=== PATIENT | male | born 1990 | race Two or more races ===

== ENCOUNTER 2020-09-15 04:09 | Emergency (ER) | payer OTHER, SELFPAY ==
--- NOTE | ~2020-09-15 | XR_ITS ---
EXAMINATION: XR CHEST CLINICAL INFORMATION: Cough COMPARISON: 05/24/2019 TECHNIQUE: Frontal view of the chest was obtained. FINDINGS: No significant abnormality is noted involving the heart, lungs, mediastinum, bony thorax or soft tissues. XR/XR chest 1V IMPRESSION: Unremarkable examination.
[2020-09-15 05:27] VITALS: BP 146/84; PULSE 71; RESP 18; TEMP 36.7; O2SAT 96; BMI 43.0
--- NOTE | 2020-09-15 06:27 | ED_ITS ---
HPI - URI/Sore Throat General Chief Complaint: Upper Respiratory Symptoms Stated Complaint: PAIN WHEN COUGH Time Seen by Provider: 09/15/20 05:46 Source: patient Mode of arrival: ambulatory History of Present Illness HPI Narrative: 29-year-old male who was diagnosed with COVID-19 on 09/07 and has since had improvement of his COVID symptoms with the exception of a persistent dry cough although patient sources that he continues to vape. He presents today with complaints of pain at the anterior abdominal wall every time he coughs. This is not been associated with any fever, chills, nausea, vomiting, diarrhea, or urinary pain/burning/frequency. Related Data Previous Rx's Medication Instructions Recorded benzonatate [Tessalon Perles] 100 mg PO TID PRN 3 Days #10 cap 09/15/20 Allergies Allergy/AdvReac Type Severity Reaction Status Date / Time No Known Allergies Allergy Unverified 02/23/20 16:10 [No Known Allergies*] Review of Systems Review of Systems: Pertinent positives and negatives as stated in the HPI and 10 point review of systems is otherwise negative. PMFSH Past Medical History Source: nursing notes reviewed Medical History No known health problems Social History Social History Advance Directives: No Advance Directives Information Provided: No Physical Exam Vital Signs: Vital Signs: Last Vital Signs Temp 98.1 F 09/15/20 05:27 Pulse 71 09/15/20 05:27 Resp 18 09/15/20 05:27 BP 146/84 H 09/15/20 05:27 Pulse Ox 96 09/15/20 05:27 Body Mass Index 43.0 VITAL SIGNS: Reviewed. GENERAL: Well developed, well nourished, in no acute distress. HEAD: Normocephalic/atraumatic LUNGS: Bilateral rhonchi but no noted wheezing SpO2<96> CARDIOVASCULAR: Regular rate and rhythm without noted murmurs ABDOMEN: Obese, soft, non-tender, non-distended with bowel sounds, there is no pain on palpation of the left abdominal wall. NEUROLOGIC: Alert and oriented x 4. Course Course Course Narrative: This is a 29-year-old male with history and clinical presentation consistent with abdominal wall muscle strain associated with persistent coughing since the end of August. There is no clinical findings or history to suggest intra-abdominal or urinary pathologies. In addition, patient is overall expressing improvement in his COVID-19 symptoms. Review of all investigations is negative for any acute findings. Patient stable for discharge to home with prescription for Tessalon. Discharge Plan Discharge Clinical Impression: Abdominal wall pain Patient Disposition: Home, Self-Care Instructions: Muscle Strain (ED) Additional Instructions: 1. Tylenol 1000 mg, orally, every 6 hours as needed for pain control. Do not exceed 4000 mg within 24 hours. 2. Ibuprofen 400 mg, orally with milk or food, every 6 hours as needed for pain control. 3. Lidocaine patch, these are available [id number] at every [facility], apply to area of maximal tenderness as directed on the outside packaging. Prescriptions: New benzonatate [Tessalon Perles] 100 mg capsule 100 mg PO TID PRN (Reason: cough) 3 Days Qty: 10 RF: 0 Referrals: Physician,Unknown [Primary Care Provider] - 2 days
[2020-09-15] MEDS: Ketorolac Tromethamine 15 MG/ML VIAL IM (06:46)
[2020-09-15] MEDS: Benzonatate 100 MG CAPSULE 200 MG PO (06:46)
[2020-09-15] MEDS: Acetaminophen 325 MG TABLET 975 MG PO (06:46)
[2020-09-15] MEDS: Lidocaine 4 % Patch ADH..PATCH 1 PATCH TRANSDERMA (06:47)
== END 2020-09-15 06:55 | disposition home or self-care (01) ==
PROVIDERS: Emergency Provider Student in an Organized Health Care Education/Training Program
DX: R10.9 Unspecified abdominal pain (principal); F17.290 Nicotine dependence, other tobacco product, uncomplicated; Z86.16 Personal history of COVID-19
CPT/HCPCS: 71045; 96372; 99283; 99284; J1885

== ENCOUNTER → 2021-05-07 10:32 | Outpatient (BNVA) | payer OTHER, SELFPAY | PROVIDERS: PCP Internal Medicine; Referring Provider Internal Medicine; Visit Provider Psychiatry & Neurology Neurology | DX: G47.33 Obstructive sleep apnea (adult) (pediatric) (principal); E66.01 Morbid (severe) obesity due to excess calories; Z68.42 Body mass index [BMI] 45.0-49.9, adult | CPT/HCPCS: 99202 ==

== ENCOUNTER 2021-07-26 12:02 | Outpatient (REF) | payer OTHER, SELFPAY ==
[2021-07-26 12:19] LABS: MANUAL DIFF FLAG NO
[2021-07-26 12:42] LABS: Basophils Percent Auto 0.3 % (0-2); Eosinophils Absolute Auto 0.1 X10*3/uL (0.0-0.4); Eosinophils Percent Auto 1.5 % (0-4); Hemoglobin 14.6 g/dl (14.0-18.0); Imm Gran Abs Auto 0.04 X10*3/uL (0.00-0.03); Imm Gran Pct Auto 0.4 % (0.0-0.4); Lymphocytes Absolute Auto 2.3 X10*3/uL (1.2-4.9); Lymphocytes Percent Auto 23.7 % (20-40); Mean Corpuscular HGB Conc 32.4 g/dl (31.0-36.0); Mean Corpuscular Hemoglobin 28.3 pg (27.0-33.0); Mean Corpuscular Volume 87.4 fL (80.0-98.0); Mean Platelet Volume 9.8 fL (9.4-12.4); Monocytes Absolute Auto 0.6 X10*3/uL (0.1-1.2); Monocytes Percent Auto 6.2 % (2-11); Neutrophils Absolute Auto 6.6 x10*3/uL (2.0-8.3); Neutrophils Percent Auto 67.9 % (45-73); Platelet Count 307 X10*3/uL (160-400); Red Blood Count 5.15 X10*6/uL (4.60-5.80); Red Cell Distribution Width 13.9 % (11.0-16.0); White Blood Count 9.7 X10*3/uL (4.8-10.8)
[2021-07-26 13:07] LABS: Alanine Aminotransferase 43 U/L (0-40); Albumin Level 4.4 g/dL (3.5-5.0); Alkaline Phosphatase 129 U/L (39-117); Anion Gap 12 (12-20); Aspartate Amino Transferase 25 U/L (5-37); Bilirubin Total < 0.2 mg/dL (0.0-1.0); Blood Urea Nitrogen 17 mg/dL (9-16); Calcium 9.7 mg/dL (8.4-10.2); Carbon Dioxide 28 mmol/L (22-29); Chloride 104 mmol/L (96-108); Cholesterol 206 mg/dL; Estimated Glomerular Filt Rate > 60; Glucose Fasting 102 mg/dL (60-99); HDL Cholesterol 39 mg/dL; LDL Cholesterol Calculated 150 mg/dl; Sodium 139 mmol/L (135-145); Total Protein 7.8 g/dL (6.5-8.0); Triglycerides 86 mg/dL
[2021-07-26 13:18] LABS: Appearance Urine CLEAR; Color Urine YELLOW; Glucose Urine UA NEG (NEG); Leukocyte Esterase Urine NEG (NEG); Nitrite Urine NEG (NEG); PH 6.5 (5.0-8.0); Specific Gravity - Urine 1.015 (1.005-1.025); Urine Blood NEG (NEG); Urine Ketones NEG (NEG); Urine Protein NEG (NEG-TRACE)
[2021-07-26 13:26] LABS: TSH reflex Free T4 1.73 uIU/mL (0.32-4.0); Vitamin D 25-OH Total 7.2 ng/mL (>30)
[2021-07-29 08:17] LABS: HBS Num1 0.07 mIU/mL (0-7.99); HBc Num1 0.11 S/CO (0.00-0.79); Hepatitis B Core Antibody Nonreactive (Nonreactive); ~HepC Num1 0.14 S/CO (0.00-0.79); ~Hepatitis B Surface Antibody NONREACTIVE (Nonreactive); ~Hepatitis C Antibody Nonreactive (Nonreactive)
[2021-07-29 08:25] LABS: Hepatitis B Surface Antigen Negative (Negative)
== END 2021-07-26 12:03 | disposition home or self-care (01) ==
LOC: HO.LAB 12:02
PROVIDERS: PCP Internal Medicine; Visit Provider Internal Medicine
DX: Z00.00 Encounter for general adult medical examination without abnormal findings (principal); R03.0 Elevated blood-pressure reading, without diagnosis of hypertension; E66.01 Morbid (severe) obesity due to excess calories; Z68.42 Body mass index [BMI] 45.0-49.9, adult; Z20.5 Contact with and (suspected) exposure to viral hepatitis; E55.9 Vitamin D deficiency, unspecified
CPT/HCPCS: 36415; 80053; 80061; 81003; 82306; 84443; 85025; 86704; 86706; 86803; 87340

== ENCOUNTER 2021-08-01 07:58 | Outpatient (REF) | payer OTHER, SELFPAY ==
--- NOTE | 2021-08-01 | PFT_ITS ---
INDICATION: Dyspnea. SPIROMETRY: FEV1 to FVC of 74% with an FEV1 of 3.73 L, which is 85% predicted and FVC of 5.05 L, which is 94% predicted. No significant response to bronchodilators noted. To note, the patient does have significant small airways disease with an FEF 25/75 of 56% predicted, very suspicious for asthma. Maximum voluntary ventilation is 62% predicted. LUNG VOLUMES: Total lung capacity 99% predicted with residual volume 121% predicted and an expiratory reserve volume of 29% predicted secondary to the elevated BMI. DIFFUSION CAPACITY: DLCO 98% predicted. COMPARISONS: None. INTERPRETATION: No obstructive nor restrictive ventilatory defects identified. No significant response to bronchodilators noted. To note, the patient does have evidence of small airway disease; could be secondary to asthma or his body habitus. His maximum voluntary ventilation is moderately decreased likely secondary to deconditioning. Lung volumes demonstrate a trend increase in the residual volume suggesting a trend of air trapping and also a significant decrease in the expiratory reserve volume secondary to the elevated BMI. Diffusion capacity is within normal limits. If asthma is in the differential, a more definitive diagnosis can be made with a methacholine challenge test. Clinical correlation warranted. Eduar Santana MD MR/MODL / [id number]
== END 2021-08-01 07:59 | disposition home or self-care (01) ==
LOC: HO.RESP 07:58
PROVIDERS: PCP Internal Medicine; Visit Provider Nurse Practitioner Family
DX: R06.00 Dyspnea, unspecified (principal)
CPT/HCPCS: 94060; 94727; 94729

== ENCOUNTER 2021-09-02 08:26 | Outpatient (REF) | payer OTHER, SELFPAY ==
--- NOTE | 2021-09-02 13:56 | PFT_ITS ---
Baseline spirometry shows FVC 97%, FEV1 84%, FEV1/FVC 71, [id number] 60%. Post bronchodilator therapy, there is no significant change. This baseline spirometry pre and post bronchodilator therapy indicates a very mild degree of small airway obstructive disorder. Methacholine challenge test was performed. The pre methacholine test findings are as follows: FVC 97%, FEV1 84%, FEV1/FVC ratio 71, [id number] 60%. Gradually increasing concentrations of methacholine were used. Final concentration 16 mg/mL was used, and the findings were as follows: FVC 87% indicating a decrease of 9% from the baseline. FEV1 is 74%, indicating decrease by 11% from the baseline. [id number] 61% indicating a 12% decrease from the baseline. Post bronchodilator therapy, the results returned to almost baseline. CONCLUSION: A very mild degree of small airway obstructive disorder noted on the baseline study. There is a borderline negative response to methacholine challenge, indicating the presence of reactive airways/bronchial asthma. Clinical correlation recommended. MD ZHENG El/KARY / [id number]
== END 2021-09-02 08:27 | disposition home or self-care (01) ==
LOC: HO.RESP 08:26
PROVIDERS: PCP Internal Medicine; Visit Provider Nurse Practitioner Family
DX: R06.00 Dyspnea, unspecified (principal)
CPT/HCPCS: 94070; J7674

== ENCOUNTER 2022-03-01 13:28 | Emergency (ER) | payer OTHER, SELFPAY ==
[2022-03-01 14:32] VITALS: BP 139/85; PULSE 85; RESP 18; TEMP 37; O2SAT 96; BMI 48.4
[2022-03-01 15:14] LABS: COVID-19 Test Negative (Negative); IDNOW Serial# 16C4AD1C; IDNOW Serial# 9DB6401D; Influenza A Negative (Negative); Influenza B2 Negative (Negative)
--- NOTE | 2022-03-01 16:11 | ED_ITS ---
HPI - URI/Sore Throat General Chief Complaint: Upper Respiratory Symptoms Stated Complaint: Multiple complaints Time Seen by Provider: 03/01/22 16:11 Source: patient Mode of arrival: ambulatory History of Present Illness HPI Narrative: 31-year-old male without history of asthma, diabetes and presents with increased sinus pressure and pain as well as significant nasal congestion without ear pain some sore throat as well as describing some body aches and a cough. Otherwise, he denies any fever but states he has had some chills and denies any GI or symptoms. Related Data Previous Rx's Medication Instructions Recorded cholecalciferol (vitamin D3) 50 50 mcg PO DAILY 90 days #90 caps 10/09/21 mcg (2,000 unit) capsule Allergies Allergy/AdvReac Type Severity Reaction Status Date / Time No Known Allergies Allergy Verified 10/13/21 19:07 [No Known Allergies*] Review of Systems Review of Systems: Pertinent positives and negatives as stated in HPI 10 point review of systems is otherwise negative. PENDING SALE TO [facility] Past Medical History Source: nursing notes reviewed Medical History Asthma Elevated blood pressure reading Elevated LFTs Morbid obesity with BMI of 45.0-49.9, adult Obstructive sleep apnea Pure hypercholesterolemia Vitamin D deficiency Surgical History No history of previous surgery Family History Family History Mother High blood pressure Active asthma Diabetes Father High blood pressure Active asthma Social History Social History Housing: House Alcohol intake: current Alcohol intake frequency: holidays/special occasions only Patient Tobacco Use Status: Former Tobacco user e-Cigarette/Vaping Use: Currently Using Second Hand Smoke Exposure: Yes Advance Directives: No Advance Directives Information Provided: Yes service: No Current occupational status: employed Cognitive needs: No Hearing needs: No Vision needs: Yes Physical Exam Vital Signs: Vital Signs: Last Vital Signs Temp 98.6 F 03/01/22 14:32 Pulse 85 03/01/22 14:32 Resp 18 03/01/22 14:32 BP 139/85 03/01/22 14:32 Pulse Ox 96 03/01/22 14:32 O2 Del Method 03/01/22 14:32 BMI result Body Mass Index 48.4 VITAL SIGNS: Reviewed. GENERAL: Elevated BMI, Well developed, well nourished, in no acute distress. HEAD: Normocephalic/atraumatic EYES: PERRLA, EOMI EARS: Ext canals without abnormality, TMs non-bulging and non-erythematous NOSE: Bilateral nasal congestion with boggy turbinates OROPHARYNX: no oral lesions noted, posterior pharynx with cobblestoning and non- erythematous without noted tonsillar enlargement/erythema/exudates NECK: Supple, no adenopathy LUNGS: Normal breath sounds, no stridor/wheeze/rhonchi/rales, no tachypnea. No adventitious sounds or accessory muscle use. SpO2<96> CARDIOVASCULAR: Regular rate and rhythm without noted murmurs ABDOMEN: Soft, non-tender, non-distended with bowel sounds. No rigidity. No guarding. No palpable masses or hernias noted MUSCULOSKELETAL: No tenderness, deformities, or effusions noted on gross inspection. EXTREMITIES: No cyanosis, clubbing or edema. SKIN: Inspection of the skin reveals no rashe NEUROLOGIC: Alert and oriented x 4. Strength and sensation to light touch were grossly intact x 4. Course Course Course Narrative: This is a 31-year-old male with history and clinical presentation consistent with viral URI, on review of all investigations there is no evidence to suggest COVID-19 or influenza. Patient was informed of all results and he was instructed to repeat is COVID-19 testing in 2-3 days. Review of vital signs are otherwise stable no evidence of febrile, difficulty breathing or tachypnea. Patient is oxygenating well on room air. MDM - URI/Sore Throat Lab Data Labs: Lab Results 03/01/22 03/01/22 Range/Units 14:48 14:48 COVID-19 ([facility]) Negative (Negative) COVID-19 Clin Com See Note Influenza Type A ([facility]) Negative (Negative) Influenza Type B ([facility]) Negative (Negative) Influenza A & B Note See Note Discharge Plan Discharge Clinical Impression: Upper respiratory infection, Viral syndrome Patient Disposition: Home, Self-Care Instructions: Viral Syndrome (ED), Upper Respiratory Infection (ED) Additional Instructions: 1. Recommend repeating your COVID-19 testing in 2-3 days, please limit your contact with others and use of mask at all times during this period. 2. Recommend [id number] Tylenol/ibuprofen as needed for symptoms and any temperatures greater than 100.4. Increase your water intake. 3. Also recommend that you begin using a combination of Flonase and Claritin as high suspicion for environmental allergies. 4. Follow-up with your primary care provider in the next 2-3 days for re- evaluation and further outpatient management. Do not hesitate to return to the emergency room for any worsening symptoms. Prescriptions: No Action cholecalciferol (vitamin D3) 50 mcg (2,000 unit) capsule 50 mcg PO DAILY 90 Days Qty: 90 3RF Referrals: Raad Schrader MD [Primary Care Provider] -
== END 2022-03-01 17:59 | disposition home or self-care (01) ==
PROVIDERS: Emergency Provider Student in an Organized Health Care Education/Training Program; PCP Internal Medicine
DX: J06.9 Acute upper respiratory infection, unspecified (principal); B34.9 Viral infection, unspecified; Z20.822 Contact with and (suspected) exposure to COVID-19; J45.909 Unspecified asthma, uncomplicated; E78.00 Pure hypercholesterolemia, unspecified; E66.01 Morbid (severe) obesity due to excess calories; Z68.42 Body mass index [BMI] 45.0-49.9, adult; Z87.891 Personal history of nicotine dependence
CPT/HCPCS: 87502; 87635; 99282; 99283

== ENCOUNTER 2022-07-01 19:28 | Emergency (ER) | payer OTHER, SELFPAY ==
[2022-07-01 19:53] VITALS: BP 142/84; PULSE 74; RESP 18; TEMP 36.5; O2SAT 97; BMI 44.4
--- NOTE | 2022-07-01 19:57 | ED.SKABFB ---
HPI - Skin/Abscess/Foreign Bdy General Chief complaint: Extremity Injury, Upper <HÉCTOR Presley - Last Filed: 07/01/22 19:59> Stated complaint: Needle stick at work <HÉCTOR Presley Last Filed: 07/01/22 19:59> Time Seen by Provider: 07/01/22 23:57 <HÉCTOR Presley - Last Filed: 07/01/22 19:59> Source: patient <HÉCTOR Vivas - Last Filed: 07/02/22 00:18> Mode of arrival: ambulatory <HÉCTOR Vivas Last Filed: 07/02/22 00:18> Limitations: no limitations <HÉCTOR Vivas Last Filed: 07/02/22 00:18> History of Present Illness HPI narrative: This is a 31-year-old male presenting for an accidental needlestick to his left pinky finger. 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 Needle cause him to bleed at puncture site. Unknown if patient has HIV, hepatitis C. He tells me he suspects there IV drug abusers. 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 Denies numbness, tingling. Tells me he is interested in the post exposure kit. To note, patient tells me he was not vaccinated against hepatitis-B. <HÉCTOR Vivas Last Filed: 07/02/22 00:18> Related Data Home medications: Previous Rx's Medication Instructions Recorded cholecalciferol (vitamin D3) 50 50 mcg PO DAILY 90 days #90 caps 10/09/21 mcg (2,000 unit) capsule <HÉCTOR Presley Last Filed: 07/01/22 19:59> Allergies/Adverse reactions: Allergies Allergy/AdvReac Type Severity Reaction Status Date / Time No Known Allergies Allergy Verified 10/13/21 19:07 [No Known Allergies*] <HÉCTOR Presley Last Filed: 07/01/22 19:59> Review of Systems Review of Systems: Constitutional : No Fever, No Chills, Cardiovascular : No Chest Pain, No SOB Respiratory : No Dyspnea Gastrointestinal : No abdominal pain Musculoskeletal : No Joint Swelling Skin : No rash, No skin laceration, + Puncture wound Neuro : No Weakness, No Numbness Psych : No SI/HI <HÉCTOR Vivas - Last Filed: 07/02/22 00:18> Yes all other systems are reviewed and are negative <HÉCTOR Vivas - Last Filed: 07/02/22 00:18> [facility] Past Medical History Attestation statement: The following information was validated with the patient. <HÉCTOR Vivas - Last Filed: 07/02/22 00:18> Source: old records reviewed and nursing notes reviewed <HÉCTOR Vivas - Last Filed: 07/02/22 00:18> Medical History: Medical History Asthma Elevated blood pressure reading Elevated LFTs Morbid obesity with BMI of 45.0-49.9, adult Obstructive sleep apnea Pure hypercholesterolemia Vitamin D deficiency <HÉCTOR Presley - Last Filed: 07/01/22 19:59> Surgical History: Surgical History No history of previous surgery <HÉCTOR Presley - Last Filed: 07/01/22 19:59> Family History Family History: Family History Mother High blood pressure Active asthma Diabetes Father High blood pressure Active asthma <HÉCTOR Presley - Last Filed: 07/01/22 19:59> Social History Social History: Social History Housing: House Alcohol intake: current Alcohol intake frequency: holidays/special occasions only Patient Tobacco Use Status: Former Tobacco user e-Cigarette/Vaping Use: Currently Using Second Hand Smoke Exposure: Yes Advance Directives: No Advance Directives Information Provided: Yes service: No Current occupational status: employed Cognitive needs: No Hearing needs: No Vision needs: Yes <HÉCTOR Presley Last Filed: 07/01/22 19:59> Physical Exam Vital Signs: Vital Signs: Last Vital Signs Temp 97.7 F 07/01/22 19:53 Pulse 74 07/01/22 19:53 Resp 18 07/01/22 19:53 BP 142/84 H 07/01/22 19:53 Pulse Ox 97 07/01/22 19:53 O2 Del Method 07/01/22 19:53 BMI result Body Mass Index 44.4 <HÉCTOR Presley - Last Filed: 07/01/22 19:59> Vital Signs: Last Vital Signs Temp 97.7 F 07/01/22 19:53 Pulse 74 07/01/22 19:53 Resp 18 07/01/22 19:53 BP 142/84 H 07/01/22 19:53 Pulse Ox 97 07/01/22 19:53 O2 Del Method 07/01/22 19:53 BMI result Body Mass Index 44.4 vss <HÉCTOR Vivas - Last Filed: 07/02/22 00:18> Appearance: Alert.? Oriented X3.? No acute distress.? Head: Normocephalic, atraumatic, no step-offs or deformities Eyes: Pupils equal, round and reactive to light.? ENT: Pharynx normal.? Neck: Normal inspection.? Neck supple.? CVS: Normal heart rate and rhythm.? Pulses normal.? Respiratory: No respiratory distress.? Breath sounds normal.? Abdomen: Soft and nontender.? Skin: Skin warm and dry.? Normal skin color.? Normal skin turgor.? Extremities: No lower extremity edema.? No calf ttp. 5/5 strength to bilateral upper and lower extremities + nonbleeding small puncture noted to the left proximal aspect of pinky finger on the dorsal side. Neuro: Oriented X 3.? No motor deficit.? No sensory deficit. CN 2-12 intact <HÉCTOR Vivas - Last Filed: 07/02/22 00:18> Course Course Course Narrative: RME - 31 yo male presenting to the ER for evaluation of a needlestick to the left hand about an hour ago while at work. He works at [employer] where they have a policy customers cannot carry their bags. Customer put her bag on the counter and when he picked it up he was stuck with a needle that was sticking out of the bag. Injury yenifer blood with visible puncture site. Would like post-exposure kit. Advised about need for close follow up and possible toxicities associated with these medications. Labs including HIV, Hepatitis panel and labs ordered. Will need to f/u with [facility]. <HÉCTOR Presley - Last Filed: 07/01/22 19:59> Reevaluation(s) Reevaluation #1: CBC appears to be within normal limits. Chemistry with no acute electrolyte abnormalities requiring intervention. Transaminases within normal limits. Normal bilirubin. Alk-phos chronically slightly elevated however not significantly. Patient is still interested in post exposure kit. Will give 1st dose is urine explained to him how to take it. Educated patient on diagnosis and treatment plan, answered all question, patient verbalizes understanding. At this time patient will be discharged home, advised to return with new or worsening symptoms. Educated on worrisome signs and symptoms and when to return. At this time I feel comfortable discharge home. <HÉCTOR Vivas Last Filed: 07/02/22 00:18> Time: 00:16 <HÉCTOR Vivas - Last Filed: 07/02/22 00:18> Medical Decision Making Medical Decision Making [facility] Narrative: 0012 31 yo M presents status post needle stick at work. Interested in post exposure kit. Physical exam significant for nonbleeding small puncture noted to the left proximal aspect of pinky finger on the dorsal side Concerns for possible transmission of diseases such as hepatitis, HIV. No signs of cellulitis or nerve injury. Plan at this time is post exposure kit, I had a long conversation with patient in regards to risks and benefits of starting this including risk of toxicity, I explained to him if he wants this kid he needs to have prompt follow-up with the work connection and with Infectious Disease. Patient verbalizes understanding and would like the post exposure kit. <HÉCTOR Vivas Last Filed: 07/02/22 00:18> Differential Diagnosis Differential Diagnoses: The differential diagnosis associated with the presentation includes <HÉCTOR Vivas Last Filed: 07/02/22 00:18> Concerns for possible transmission of diseases such as hepatitis, HIV. No signs of cellulitis or nerve injury. <HÉCTOR Vivas - Last Filed: 07/02/22 00:18> Admission/Observation Consideration of admission/observation: Escalation of care including admission/observation considered <HÉCTOR Vivas - Last Filed: 07/02/22 00:18> Not indicated <HÉCTOR Vivas - Last Filed: 07/02/22 00:18> Lab Data MDM Lab Attestation statement: I reviewed the patient's lab results. <HÉCTOR Vivas - Last Filed: 07/02/22 00:18> Result Diagrams: 07/01/22 22:18 07/01/22 22:18 <HÉCTOR Presley - Last Filed: 07/01/22 19:59> Labs: Lab Results 07/01/22 07/01/22 Range/Units 22:18 22:18 WBC 10.7 (4.8-10.8) X10*3/uL RBC 5.38 (4.60-5.80) X10*6/uL Hgb 14.6 (14.0-18.0) g/dl Hct 45.2 (42.0-52.0) % MCV 84.0 (80.0-98.0) fL MCH 27.1 (27.0-33.0) pg MCHC 32.3 (31.0-36.0) g/dl RDW 13.2 (11.0-16.0) % Plt Count 325 (160-400) X10*3/uL MPV 9.4 (9.4-12.4) fL Immature Gran % (Auto) 0.2 (0.0-0.4) % Neut % (Auto) 67.5 (45-73) % Lymph % (Auto) 23.5 (20-40) % [place] % (Auto) 6.7 (2-11) % Eos % (Auto) 1.6 (0-4) % Baso % (Auto) 0.5 (0-2) % Lymph # (Auto) 2.5 (1.2-4.9) X10*3/uL [place] # (Auto) 0.7 (0.1-1.2) X10*3/uL Eos # (Auto) 0.2 (0.0-0.4) X10*3/uL Baso # (Auto) 0.1 (0.0-0.2) X10*3/uL Abs Immat Gran (auto) 0.02 (0.00-0.03) X10*3/uL Absolute Neuts (auto) 7.2 (2.0-8.3) x10*3/uL Absolute Nucleated RBC 0.000 (0.0-0.012) X10*3/uL Nucleated RBC % (auto) 0.0 (0.0-0.2) /100WBC Sodium 139 (135-145) mmol/L Potassium 4.2 (3.3-5.1) mmol/L Chloride 103 (96-108) mmol/L Carbon Dioxide 28 (22-29) mmol/L Anion Gap 12 (12-20) BUN 14 (9-16) mg/dL Creatinine 0.82 (0.5-1.4) mg/dL Estim Creat Clear Calc 188.0 Estimated GFR > 60 Random Glucose 106 (60-115) mg/dL Calcium 9.3 (8.4-10.2) mg/dL Total Bilirubin 0.3 (0.0-1.0) mg/dL Direct Bilirubin < 0.2 (0.0-0.5) mg/dL AST 23 (5-37) U/L ALT 39 (0-40) U/L Alkaline Phosphatase 127 H (39-117) U/L Total Protein 7.4 (6.5-8.0) g/dL Albumin 4.2 (3.5-5.0) g/dL <HÉCTOR Presley - Last Filed: 07/01/22 19:59> Lab Results 07/01/22 07/01/22 Range/Units 22:18 22:18 WBC 10.7 (4.8-10.8) X10*3/uL RBC 5.38 (4.60-5.80) X10*6/uL Hgb 14.6 (14.0-18.0) g/dl Hct 45.2 (42.0-52.0) % MCV 84.0 (80.0-98.0) fL MCH 27.1 (27.0-33.0) pg MCHC 32.3 (31.0-36.0) g/dl RDW 13.2 (11.0-16.0) % Plt Count 325 (160-400) X10*3/uL MPV 9.4 (9.4-12.4) fL Immature Gran % (Auto) 0.2 (0.0-0.4) % Neut % (Auto) 67.5 (45-73) % Lymph % (Auto) 23.5 (20-40) % [place] % (Auto) 6.7 (2-11) % Eos % (Auto) 1.6 (0-4) % Baso % (Auto) 0.5 (0-2) % Lymph # (Auto) 2.5 (1.2-4.9) X10*3/uL [place] # (Auto) 0.7 (0.1-1.2) X10*3/uL Eos # (Auto) 0.2 (0.0-0.4) X10*3/uL Baso # (Auto) 0.1 (0.0-0.2) X10*3/uL Abs Immat Gran (auto) 0.02 (0.00-0.03) X10*3/uL Absolute Neuts (auto) 7.2 (2.0-8.3) x10*3/uL Absolute Nucleated RBC 0.000 (0.0-0.012) X10*3/uL Nucleated RBC % (auto) 0.0 (0.0-0.2) /100WBC Sodium 139 (135-145) mmol/L Potassium 4.2 (3.3-5.1) mmol/L Chloride 103 (96-108) mmol/L Carbon Dioxide 28 (22-29) mmol/L Anion Gap 12 (12-20) BUN 14 (9-16) mg/dL Creatinine 0.82 (0.5-1.4) mg/dL Estim Creat Clear Calc 188.0 Estimated GFR > 60 Random Glucose 106 (60-115) mg/dL Calcium 9.3 (8.4-10.2) mg/dL Total Bilirubin 0.3 (0.0-1.0) mg/dL Direct Bilirubin < 0.2 (0.0-0.5) mg/dL AST 23 (5-37) U/L ALT 39 (0-40) U/L Alkaline Phosphatase 127 H (39-117) U/L Total Protein 7.4 (6.5-8.0) g/dL Albumin 4.2 (3.5-5.0) g/dL <HÉCTOR Vivas - Last Filed: 07/02/22 00:18> Core Measures AMI core measures followed: Yes <HÉCTOR Vivas - Last Filed: 07/02/22 00:18> Measure exclusions: not indicated <HÉCTOR Vivas - Last Filed: 07/02/22 00:18> Critical Care Time Critical Care Time Critical Care Time: No <HÉCTRO Vivas Last Filed: 07/02/22 00:18> Discharge Plan Discharge Clinical Impression: Accidental hypodermic needlestick injury, Work related injury <HÉCTOR Presley - Last Filed: 07/01/22 19:59> Patient Disposition: Home, Self-Care <HÉCTOR Presley - Last Filed: 07/01/22 19:59> Instructions: Needle Stick Injuries (ED) <HÉCTOR Presley Last Filed: 07/01/22 19:59> Additional Instructions: Take your medications as prescribed. If you were prescribed antibiotics today, it is important that you take your medication to their entirety, do not skip any doses, do not finish them early. Follow-up with your primary care provider this week. You should follow-up with Infectious Disease within the next day or 2 Return to the emergency department with new or worsening symptoms. Such as fevers, chills, chest pain, shortness of breath, nausea, vomiting, dizziness, headache, vision changes, lethargy In case of emergency call 911 Your hepatitis A, B and C test are pending as well as HIV test. You decided to start supposed exposure prophylactic it therefore please follow-up with your PCP, the [facility] connection as well as Infectious Disease within the next 1-2 days. Please follow precise directions on how to take the post exposure medications. The work connection: [phone] <HÉCTOR Presley - Last Filed: 07/01/22 19:59> Prescriptions: No Action cholecalciferol (vitamin D3) 50 mcg (2,000 unit) capsule 50 mcg PO DAILY 90 Days Qty: 90 3RF <HÉCTOR Presley - Last Filed: 07/01/22 19:59> Referrals: Beverly Aranda MD [Physician] - 1 day <HÉCTOR Presley - Last Filed: 07/01/22 19:59> Stand Alone Forms: Work/School Release <HÉCTOR Presley - Last Filed: 07/01/22 19:59>
[2022-07-01 22:24] LABS: MANUAL DIFF FLAG NO
[2022-07-01 22:25] LABS: Basophils Absolute Auto 0.1 X10*3/uL (0.0-0.2); Basophils Percent Auto 0.5 % (0-2); Eosinophils Absolute Auto 0.2 X10*3/uL (0.0-0.4); Eosinophils Percent Auto 1.6 % (0-4); Hematocrit 45.2 % (42.0-52.0); Hemoglobin 14.6 g/dl (14.0-18.0); Imm Gran Abs Auto 0.02 X10*3/uL (0.00-0.03); Imm Gran Pct Auto 0.2 % (0.0-0.4); Lymphocytes Absolute Auto 2.5 X10*3/uL (1.2-4.9); Lymphocytes Percent Auto 23.5 % (20-40); Mean Corpuscular HGB Conc 32.3 g/dl (31.0-36.0); Mean Corpuscular Hemoglobin 27.1 pg (27.0-33.0); Mean Platelet Volume 9.4 fL (9.4-12.4); Monocytes Absolute Auto 0.7 X10*3/uL (0.1-1.2); Monocytes Percent Auto 6.7 % (2-11); Neutrophils Absolute Auto 7.2 x10*3/uL (2.0-8.3); Neutrophils Percent Auto 67.5 % (45-73); Platelet Count 325 X10*3/uL (160-400); Red Blood Count 5.38 X10*6/uL (4.60-5.80); Red Cell Distribution Width 13.2 % (11.0-16.0); White Blood Count 10.7 X10*3/uL (4.8-10.8)
[2022-07-01 22:51] LABS: Alanine Aminotransferase 39 U/L (0-40); Albumin Level 4.2 g/dL (3.5-5.0); Alkaline Phosphatase 127 U/L (39-117); Anion Gap 12 (12-20); Aspartate Amino Transferase 23 U/L (5-37); Bilirubin Direct < 0.2 mg/dL (0.0-0.5); Bilirubin Total 0.3 mg/dL (0.0-1.0); Blood Urea Nitrogen 14 mg/dL (9-16); Calcium 9.3 mg/dL (8.4-10.2); Carbon Dioxide 28 mmol/L (22-29); Chloride 103 mmol/L (96-108); Estimated Glomerular Filt Rate > 60; Glucose Random 106 mg/dL (60-115); Potassium 4.2 mmol/L (3.3-5.1); Sodium 139 mmol/L (135-145); Total Protein 7.4 g/dL (6.5-8.0)
[2022-07-02] MEDS: Post Exposure Medication Kit 1 KIT PO (01:18)
[2022-07-02 08:39] LABS: HBc Num1 0.18 S/CO (0.00-0.79); HBsAGNum1 0.35 S/CO (0.00-0.99); HIV AB/AG Nonreactive (Nonreactive); HIV Num 1 0.06 S/CO (0.00-0.99); Hepatitis A Antibody IgM 0.18 Index (0-0.79); Hepatitis B Core Antibody Nonreactive (Nonreactive); Hepatitis B Surface Antigen Negative (Negative); ~HepC Num1 0.12 S/CO (0.00-0.79); ~Hepatitis A Antibody IgM Nonreactive (Nonreactive); ~Hepatitis B Surface Antibody NONREACTIVE (Nonreactive); ~Hepatitis C Antibody Nonreactive (Nonreactive)
== END 2022-07-02 01:20 | disposition home or self-care (01) ==
PROVIDERS: Physician Assistant; Emergency Provider Internal Medicine; PCP Internal Medicine
DX: S61.237A Puncture wound without foreign body of left little finger without damage to nail, initial encounter (principal); Y28.9XXA Contact with unspecified sharp object, undetermined intent, initial encounter; Y93.9 Activity, unspecified; Y92.9 Unspecified place or not applicable; Y99.0 Civilian activity done for income or pay; Z87.891 Personal history of nicotine dependence; Z79.899 Other long term (current) drug therapy; Z20.9 Contact with and (suspected) exposure to unspecified communicable disease
CPT/HCPCS: 36415; 80048; 80076; 85025; 86704; 86706; 86709; 86803; 87340; 87389; 99282; 99283

== ENCOUNTER 2022-07-09 12:22 | Outpatient (REF) | payer OTHER, SELFPAY ==
[2022-07-09 12:35] LABS: MANUAL DIFF FLAG NO
[2022-07-09 13:12] LABS: Basophils Absolute Auto 0.1 X10*3/uL (0.0-0.2); Basophils Percent Auto 0.6 % (0-2); Eosinophils Absolute Auto 0.2 X10*3/uL (0.0-0.4); Eosinophils Percent Auto 1.9 % (0-4); Hematocrit 44.2 % (42.0-52.0); Hemoglobin 14.4 g/dl (14.0-18.0); Imm Gran Abs Auto 0.03 X10*3/uL (0.00-0.03); Imm Gran Pct Auto 0.3 % (0.0-0.4); Lymphocytes Absolute Auto 1.9 X10*3/uL (1.2-4.9); Lymphocytes Percent Auto 19.9 % (20-40); Mean Corpuscular HGB Conc 32.6 g/dl (31.0-36.0); Monocytes Absolute Auto 0.5 X10*3/uL (0.1-1.2); Monocytes Percent Auto 4.9 % (2-11); Neutrophils Percent Auto 72.4 % (45-73); Platelet Count 323 X10*3/uL (160-400); Red Blood Count 5.14 X10*6/uL (4.60-5.80); Red Cell Distribution Width 13.2 % (11.0-16.0); White Blood Count 9.7 X10*3/uL (4.8-10.8)
[2022-07-09 13:47] LABS: Alanine Aminotransferase 38 U/L (0-40); Albumin Level 4.1 g/dL (3.5-5.0); Alkaline Phosphatase 121 U/L (39-117); Anion Gap 13 (12-20); Aspartate Amino Transferase 22 U/L (5-37); Bilirubin Total 0.5 mg/dL (0.0-1.0); Blood Urea Nitrogen 15 mg/dL (9-16); Calcium 9.4 mg/dL (8.4-10.2); Carbon Dioxide 28 mmol/L (22-29); Chloride 103 mmol/L (96-108); Cholesterol 171 mg/dL; Estimated Glomerular Filt Rate > 60; Glucose Fasting 139 mg/dL (60-99); HDL Cholesterol 28 mg/dL; LDL Cholesterol Calculated 124 mg/dl; Potassium 4.5 mmol/L (3.3-5.1); Sodium 139 mmol/L (135-145); Total Protein 7.3 g/dL (6.5-8.0); Triglycerides 95 mg/dL
[2022-07-09 14:01] LABS: Vitamin D 25-OH Total 7.6 ng/mL (>30)
[2022-07-09 14:16] LABS: Folate 4.6 ng/mL (> or = 4.0); TSH reflex Free T4 1.96 uIU/mL (0.32-4.0); Vitamin B12 234 pg/mL (200-900); Vitamin D 25-OH Total 5.7 ng/mL (>30)
[2022-07-09 14:27] LABS: Appearance Urine Clear; Color Urine Yellow; Glucose Urine UA Negative (Negative); Leukocyte Esterase Urine Negative (Negative); Nitrite Urine Negative (Negative); PH 5.5 (5.0-9.0); Specific Gravity - Urine >= 1.030 (1.005-1.025); Urine Blood Negative (Negative); Urine Ketones Negative (Negative); Urine Protein Negative (Neg-Trace)
== END 2022-07-09 12:23 | disposition home or self-care (01) ==
LOC: HO.LAB 12:22
PROVIDERS: PCP Internal Medicine; Visit Provider Nurse Practitioner Family
DX: Z00.00 Encounter for general adult medical examination without abnormal findings (principal); R20.0 Anesthesia of skin; E55.9 Vitamin D deficiency, unspecified; E78.00 Pure hypercholesterolemia, unspecified
CPT/HCPCS: 36415; 80053; 80061; 81003; 82306; 82607; 82746; 84443; 85025

== ENCOUNTER → 2022-07-16 10:40 | Outpatient (BNVA) | payer OTHER, SELFPAY | PROVIDERS: PCP Internal Medicine; Visit Provider Internal Medicine | DX: Z77.21 Contact with and (suspected) exposure to potentially hazardous body fluids (principal) | CPT/HCPCS: 99202 ==

== ENCOUNTER 2022-09-25 11:25 | Outpatient (REF) | payer OTHER, SELFPAY ==
--- NOTE | 2022-09-25 09:00 | EMG_ITS ---
Left tibial and peroneal motor studies were performed. Left lateral femoral cutaneous superficial peroneal and sural sensory studies were performed and paraspinal muscles were tested with a needle. IMPRESSION: 1. Left lateral femoral cutaneous neuropathy. 2. Moderate left peroneal sensory neuropathy, which likely is the start of generalize neuropathy. MD JONAH Aldana/KARY / [id number]
== END 2022-09-25 11:26 | disposition home or self-care (01) ==
LOC: HO.NEURO 11:25
PROVIDERS: PCP Internal Medicine; Visit Provider Nurse Practitioner Family
DX: R20.0 Anesthesia of skin (principal)
CPT/HCPCS: 95886; 95909

== ENCOUNTER → 2022-10-02 10:28 | Outpatient (BNVA) | payer OTHER, SELFPAY | PROVIDERS: PCP Internal Medicine; Visit Provider Psychiatry & Neurology Neurology | DX: G57.12 Meralgia paresthetica, left lower limb (principal); G47.33 Obstructive sleep apnea (adult) (pediatric); E66.01 Morbid (severe) obesity due to excess calories; Z68.42 Body mass index [BMI] 45.0-49.9, adult | CPT/HCPCS: 99212 ==

== ENCOUNTER → 2022-12-01 11:26 | Outpatient (BNVA) | payer OTHER, SELFPAY | PROVIDERS: PCP Internal Medicine; Visit Provider Nurse Practitioner Family | DX: G57.12 Meralgia paresthetica, left lower limb (principal); E66.01 Morbid (severe) obesity due to excess calories; G47.33 Obstructive sleep apnea (adult) (pediatric); Z68.42 Body mass index [BMI] 45.0-49.9, adult | CPT/HCPCS: 99212 ==

== ENCOUNTER 2023-01-13 09:52 | Outpatient (REF) | payer OTHER, SELFPAY ==
[2023-01-13 10:04] LABS: MANUAL DIFF FLAG NO
[2023-01-13 11:01] LABS: Basophils Absolute Auto 0.1 X10*3/uL (0.0-0.2); Basophils Percent Auto 0.5 % (0-2); Eosinophils Absolute Auto 0.3 X10*3/uL (0.0-0.4); Eosinophils Percent Auto 2.6 % (0-4); Hematocrit 45.7 % (42.0-52.0); Hemoglobin 14.8 g/dl (14.0-18.0); Imm Gran Abs Auto 0.04 X10*3/uL (0.00-0.03); Imm Gran Pct Auto 0.4 % (0.0-0.4); Lymphocytes Absolute Auto 2.9 X10*3/uL (1.2-4.9); Lymphocytes Percent Auto 27.6 % (20-40); Mean Corpuscular HGB Conc 32.4 g/dl (31.0-36.0); Mean Corpuscular Hemoglobin 27.5 pg (27.0-33.0); Mean Corpuscular Volume 84.8 fL (80.0-98.0); Mean Platelet Volume 10.1 fL (9.4-12.4); Monocytes Absolute Auto 0.6 X10*3/uL (0.1-1.2); Monocytes Percent Auto 5.7 % (2-11); Neutrophils Absolute Auto 6.5 x10*3/uL (2.0-8.3); Neutrophils Percent Auto 63.2 % (45-73); Platelet Count 319 X10*3/uL (160-400); Red Blood Count 5.39 X10*6/uL (4.60-5.80); Red Cell Distribution Width 13.5 % (11.0-16.0); White Blood Count 10.3 X10*3/uL (4.8-10.8)
[2023-01-13 11:14] LABS: Appearance Urine Clear; Color Urine Yellow; Glucose Urine UA Negative (Negative); Leukocyte Esterase Urine Negative (Negative); Nitrite Urine Negative (Negative); PH 6.5 (5.0-9.0); Specific Gravity - Urine 1.025 (1.005-1.025); Urine Blood Negative (Negative); Urine Ketones Negative (Negative); Urine Protein Negative (Neg-Trace)
[2023-01-13 11:39] LABS: Alanine Aminotransferase 43 U/L (0-40); Alkaline Phosphatase 112 U/L (39-117); Anion Gap 12 (12-20); Aspartate Amino Transferase 23 U/L (5-37); Bilirubin Total 0.4 mg/dL (0.0-1.0); Blood Urea Nitrogen 9 mg/dL (9-16); Calcium 9.2 mg/dL (8.4-10.2); Carbon Dioxide 27 mmol/L (22-29); Chloride 103 mmol/L (96-108); Cholesterol 172 mg/dL; Estimated Glomerular Filt Rate > 60; Glucose Fasting 135 mg/dL (60-99); HDL Cholesterol 30 mg/dL; LDL Cholesterol Calculated 120 mg/dl; Potassium 3.9 mmol/L (3.3-5.1); Sodium 138 mmol/L (135-145); Total Protein 7.6 g/dL (6.5-8.0); Triglycerides 111 mg/dL
[2023-01-13 11:57] LABS: TSH reflex Free T4 1.73 uIU/mL (0.32-4.0); Vitamin D 25-OH Total 28.8 ng/mL (>30)
[2023-01-13 13:14] LABS: Folate 4.4 ng/mL (> or = 4.0); Vitamin B12 260 pg/mL (200-900)
== END 2023-01-13 09:53 | disposition home or self-care (01) ==
LOC: HO.LAB 09:52
PROVIDERS: PCP Internal Medicine; Visit Provider Internal Medicine
DX: E78.00 Pure hypercholesterolemia, unspecified (principal); E53.8 Deficiency of other specified B group vitamins; R30.0 Dysuria; E55.9 Vitamin D deficiency, unspecified; I10 Essential (primary) hypertension
CPT/HCPCS: 36415; 80053; 80061; 81003; 82306; 82607; 82746; 84443; 85025

== ENCOUNTER 2023-05-19 13:21 | Outpatient (AMB) | payer OTHER, SELFPAY ==
--- NOTE | 2023-05-19 13:24 | A.OFFPC_ITS ---
Vital Signs 05/19/23 13:25 Height 5 ft 10 in Weight 330 lb 2 oz BMI 47.4 BP 122/78 Blood Pressure Location Lt brachial Position Sitting Pulse 83 Pulse Source Pulse Oximeter Pulse Oximetry (%) 97 Oxygen Delivery Method Room Air Intake Visit Reasons: hyperlipidemia, elevated LFTs, asthma, neuropathy Measurement Coordinator Required: No Accompanied by: Self / Same As Patient Allergies No Known Allergies [No Known Allergies*] Allergy (Verified 05/19/23 13:44) Medication List - Last Reconciled 05/19/23 by Raad Schrader MD cholecalciferol (vitamin D3) 50 mcg PO DAILY ibuprofen 800 mg PO Q8H PRN 30 days Tobacco use date assessed: 05/19/23 Dental Screening Dental Screen Date: 05/19/23 Did you have a dental visit in the last 12 months?: No Did you have a dental problem in the last 6 months where you did not have access to dental care?: No Was dental information given to patient?: Patient has dentist HPI hyperlipidemia, elevated LFTs, asthma, neuropathy HPI Details Patient comes in today for his follow up visit States that he feels okay He denies any headaches or dizziness Denies any chest pains, no SOB No nausea/vomiting, no abdominal pain No change in bowel habits noted Needs his Vitamin D Rx refilled Would like to know how he did on his labs done a few months ago in January 2023 Would also like to request for a referral to have his eyes checked - notes (+) blurring of vision at times, especially in his left eye; denies any eye pain PFSH Medical History Needlestick injury due to hypodermic needle Elevated LFTs Vitamin D deficiency Pure hypercholesterolemia Asthma Morbid obesity with BMI of 45.0-49.9, adult Elevated blood pressure reading Obstructive sleep apnea Surgical History No history of previous surgery Family History Mother High blood pressure Active asthma Diabetes Father High blood pressure Active asthma Social History Housing: House Alcohol intake: current Alcohol intake frequency: holidays/special occasions only e-Cigarette/Vaping Use: Currently Using Second Hand Smoke Exposure: Yes service: No Current occupational status: employed Cognitive needs: No Hearing needs: No Vision needs: Yes Questionnaire PHQ-9 Over the last 2 weeks, how often have you been bothered by any of the following problems? 1. Little interest or pleasure in doing things: not at all 2. Feeling down, depressed, or hopeless: not at all 3. Trouble falling or staying asleep, or sleeping too much: not at all 4. Feeling tired or having little energy: not at all 5. Poor appetite or overeating: not at all 6. Feeling bad about yourself - or that you are a failure or have let yourself or your family down: not at all 7. Trouble concentrating on things, such as reading the newspaper or watching television: not at all 8. Moving or speaking so slowly that other people could have noticed. Or the opposite - being so fidgety or restless that you have been moving around a lot more than usual: not at all 9. Thoughts that you would be better off or of hurting yourself in some way: not at all Total score: 0 Depression Screening Interpretation: Negative Depression Screening Done: Yes 67502 - PHQ-9 Billing: Yes Source: Developed by Drs. Bud Gilbert, Abby Lopez, Lawrence Burk and colleagues, with an educational sonja from [employer]. Thrive Questionnaire Date Thrive assessed: 05/19/23 I am a: Patient What is your living situation today?: I have a steady place to live Within the past 12 months, did the food you bought not last and you didn't have the money to get more?: Sometimes True Within the past 12 months, did you worry whether your food would run out before you got money to buy more?: Never true Do you have trouble paying for medicines?: No Do you have trouble getting transportation to medical appointments?: No Do you have trouble paying your heating and electricity bill?: No Do you have trouble taking care of your child, family member or friend?: No Do you have trouble with day-to-day activities such as bathing, preparing meals, shopping, managing finances, etc.?: No Are you currently unemployed and looking for a job?: No Are you interested in more education?: No Please select the resources that you would like help with: None Currently or been in a relationship where the following occur: no concerns reported AUDIT C Alcohol Use Questionnaire (AUDIT-C) 1. How often do you have a drink containing alcohol?: Monthly or less 2. How many drinks containing alcohol do you have on a typical day when you are drinking?: 1 or 2 3. How often do you have six or more drinks on one occasion?: Never Total Score: 1 Score Reviewed/Action Taken: Yes JOAO-7 AMB Questionnaire JOAO-7 Date JOAO - 7 assessed: 05/19/23 Feeling nervous, anxious, or on edge: 0 = Not at all Not being able to stop or control worryin = Not at all Worrying too much about different things: 0 = Not at all Trouble relaxin = Not at all Being so restless that it is hard to sit still: 0 = Not at all Becoming easily annoyed or irritable: 0 = Not at all Feeling afraid as if something awful might happen: 0 = Not at all Total JOAO-7 score (0-4 normal; 5-9 mild; 10-14 moderate; 15-21 severe): 0 Source: Developed by Drs. Bud Gilbert, Abby Lopez, Lawrence Burk and colleagues, with an educational sonja from [employer]. JOAO-7 Assessment Billing JOAO-7 Assessment Tool: JOAO-7 Assessment 27855 Review of Systems Const Denies chills, Denies fatigue, Denies fever(s) and Denies headache(s) Eyes Reports blurry vision (on and off in both eyes lately) ENT Denies dysphagia, Denies dizziness, Denies otalgia, Denies headache(s), Denies neck pain, Denies odynophagia and Denies sore throat Card Denies chest pain, Denies palpitations and Denies dyspnea Resp Denies cough and Denies dyspnea GI Denies abdominal pain, Denies constipation, Denies dysphagia, Denies heartburn, Denies diarrhea, Denies nausea, Denies odynophagia and Denies vomiting Denies dysuria, Denies nocturia and Denies urinary frequency Musc Denies back pain and Denies neck pain Skin/Breast Denies rash Neuro Denies dizziness and Denies headache(s) Endo Denies fatigue and Denies palpitations Physical exam (Primary Care) Vital Signs: Last Vital Signs Pulse 83 05/19/23 13:25 BP 122/78 05/19/23 13:25 Pulse Ox 97 05/19/23 13:25 Oxygen Delivery Method Room Air 05/19/23 13:25 BMI result Body Mass Index 47.4 Tobacco/Smoking Status: Tobacco use Status Tobacco use date assessed 05/19/23 05/19/23 13:27 Patient Tobacco Use Status Current someday Tobacco 11/12/22 14:02 e-Cigarette/Vaping Use Currently Using 05/19/23 13:27 PHQ-9: PHQ-9 Score PHQ-9: Total score 0 05/19/23 13:47 Depression Screening Interpretation: Negative Thrive Assessment: Date of Thrive Assessment Date Thrive assessed 05/19/23 05/19/23 13:34 Currently or been in a relationship where the following occur: no concerns reported Const General: no acute distress and alert HENMT Ears: TM's normal bilaterally and EAC's normal Throat: Yes posterior oropharynx normal and Yes tonsils normal (no TP congestion) Neck Neck: Yes no lymphadenopathy and Yes supple Resp Auscultation: clear to auscultation bilaterally, no rales and no wheezes Cardio Rate: regular rate Rhythm: regular rhythm Heart sounds: no murmurs GI Palpation (GI): Soft to palpation, nontender and No hepatosplenomegaly present Skin General skin exam: no rashes or lesions noted Extrem General: Yes no clubbing, cyanosis or edema Results Reviewed Results Reviewed: Laboratory Tests 01/13/23 01/13/23 10:03 10:10 WBC 10.3 Hgb 14.8 Hct 45.7 Plt Count 319 Sodium 138 Potassium 3.9 Creatinine 0.83 Estimated GFR > 60 Fasting Glucose 135 H Calcium 9.2 AST 23 ALT 43 H Triglycerides 111 Cholesterol 172 LDL Cholesterol, Calc 120 HDL Cholesterol 30 Vitamin B12 260 25-OH Vitamin D Total 28.8 TSH 1.73 Ur Specific [place] 1.025 Urine Protein Negative Urine Glucose (UA) Negative Urine Blood Negative Assessment and Plan Assessment & Plan (1) Pure hypercholesterolemia: Code(s): E78.00 - Pure hypercholesterolemia, unspecified Plan: Results of his labs done a few months ago reviewed and discussed with patient Reinforced low cholesterol diet Will recheck his labs and fasting lipids in 6 months for follow up (2) Elevated blood pressure reading: Code(s): R03.0 - Elevated blood-pressure reading, without diagnosis of hypertension Plan: Reinforced low sodium diet His blood pressure appears to have improved a lot with his recent weight loss Patient is instructed to continue monitoring his blood pressure regularly (3) Impaired fasting glucose: Code(s): R73.01 - Impaired fasting glucose Plan: He is advised that his fasting blood sugar done back in January 2023 was elevated at 135 mg/dl Advised that it would have logically improved with his recent weight loss Reinforced low calorie/low carb diet Will recheck his FBS in 6 months; will also check his HgbA1c in 6 months for further evaluation (4) Vitamin D deficiency: Code(s): E55.9 - Vitamin D deficiency, unspecified Plan: Improving - continue Vitamin D3 2000 units QD (Rx refilled) Will recheck his Vitamin D level in 6 months for follow up (5) Obstructive sleep apnea: Comment: (+) severe JULITA - diagnosed in September 2021 Code(s): G47.33 - Obstructive sleep apnea (adult) (pediatric) Plan: Continue using his CPAP device at night regularly - setting is at 13 to 16 cm pressure States that he has been sleeping a lot better and feels more refreshed/less tired during the daytime since he started using his CPAP device a few months ago Follow up with Sleep Medicine as scheduled (6) Asthma: Code(s): J45.909 - Unspecified asthma, uncomplicated Qualifiers: Asthma complication type: uncomplicated Asthma persistence: inte rmittent Asthma severity: mild Qualified Code(s): J45.20 - Mild intermittent asthma, uncomplicated Plan: PFT done on 09/02/2021 revealed (+) very mild degree of small airway obstructive disorder, with a borderline negative response to metacholine challenge, indicating the presence of reactive airways/bronchial asthma Continue Albuterol HFA 2 inhalations every 6 hours as needed (7) Elevated LFTs: Code(s): R79.89 - Other specified abnormal findings of blood chemistry Plan: Involving primarily his ALT; his AST was normal on his recent labs Most likely related to his weight (hepatosteatosis) and advised that this should improve with weight loss Cautioned to avoid drinking too much alcohol or taking too much Acetaminophen- containing medications as these can aggravate his LFTs Will recheck his LFTs in 6 months for follow up (8) Neuropathy: Code(s): G62.9 - Polyneuropathy, unspecified Plan: EMG and NCV done on 09/25/2022 revealed (+) left lateral femoral cutaneous neuropathy and moderate left peroneal sensory neuropathy Advised that meralgia paresthetica can also be part of the reason for his symptoms - emphasized non-pharmacologic measures like losing weight and avoidance of tight-fitting clothes to avoid aggravating his symptoms; losing weight can actually help alleviate symptoms As his Vitamin B12 level was borderline low when it was checked a few months ago, patient was advised then to start taking OTC Vitamin B12 1000 mcg QD (9) Blurry vision, bilateral: Code(s): H53.8 - Other visual disturbances Plan: Per request, will refer him to ophthalmology for further evaluation and management (10) Left low back pain: Code(s): M54.50 - Low back pain, unspecified Qualifiers: Chronicity: unspecified Sciatica presence: without sciatica Qualified Code(s): M54.50 - Low back pain, unspecified Plan: Continue Ibuprofen 800 mg TID with food PRN He was sent for x-rays of his lower back but he states that he did not get them done as his low back pain started subsiding shortly after his last visit and they appear to have also gotten a lot better with his recent weight loss Reinforced activity and weight-lifting restrictions (11) Morbid obesity with BMI of 45.0-49.9, adult: Code(s): E66.01 - Morbid (severe) obesity due to excess calories; Z68.42 - Body mass index [BMI] 45.0-49.9, adult Plan: Reinforced diet/exercise as tolerated/lose weight - he has been able to lose over 10 pounds since his last visit Plan To return in 6 months for his next annual physical examination Orders: Orders Hemoglobin A1c 6 Months R73.01 - Impaired fasting glucose, Z00.00 - Encounter for general adult medical examination without abnormal findings TSH reflex Free T4 6 Months E78.00 - Pure hypercholesterolemia, unspecified, Z00.00 - Encounter for general adult medical examination without abnormal findings Vitamin D 25-OH Total 6 Months E55.9 - Vitamin D deficiency, unspecified, Z00.00 - Encounter for general adult medical examination without abnormal findings Complete Blood Count Auto Diff 6 Months G62.9 - Polyneuropathy, unspecified, Z00.00 - Encounter for general adult medical examination without abnormal findings Comprehensive [place]. Panel Fast 6 Months E78.00 - Pure hypercholesterolemia, unspecified, Z00.00 - Encounter for general adult medical examination without abnormal findings Lipid Panel 6 Months E78.00 - Pure hypercholesterolemia, unspecified, Z00.00 - Encounter for general adult medical examination without abnormal findings UA CC w/rflx Micro + Cult 6 Months R30.0 - Dysuria, Z00.00 - Encounter for general adult medical examination without abnormal findings Vitamin B12 and Folate 6 Months E53.8 - Deficiency of other specified B group vitamins, Z00.00 - Encounter for general adult medical examination without abnormal findings Referrals Ophthalmology Referral H53.8 - Other visual disturbances Medications: Changed From cholecalciferol (vitamin D3) 50 mcg PO DAILY 90 tabs 0RF R79.89 - Other specified abnormal findings of blood chemistry To cholecalciferol (vitamin D3) 50 mcg PO DAILY 90 days 90 tabs 3RF R79.89 - Other specified abnormal findings of blood chemistry Coding Level of Care Code Est Pt Level 4 (90203) Diagnoses Pure hypercholesterolemia E78.00 Elevated blood pressure reading R03.0 Impaired fasting glucose R73.01 Vitamin D deficiency E55.9 Obstructive sleep apnea G47.33 Mild intermittent asthma without complication J45.20 Asthma complication type: uncomplicated Asthma persistence: intermittent Asthma severity: mild Elevated LFTs R79.89 Neuropathy G62.9 Blurry vision, bilateral H53.8 Left-sided low back pain without sciatica, unspecified chronicity M54.50 Chronicity: unspecified Sciatica presence: without sciatica Morbid obesity with BMI of 45.0-49.9, adult E66.01; Z68.42 Additional Codes JOAO-7 Assessment Billing - JOAO-7 Assessment Tool: JOAO-7 Assessment 69503 ([id number])
[2023-05-19 13:25] VITALS: BP 122/78; PULSE 83; O2SAT 97; BMI 47.4
== END 2023-05-19 13:54 | disposition home or self-care (01) ==
PROVIDERS: PCP Internal Medicine; Visit Provider Internal Medicine
DX: E78.00 Pure hypercholesterolemia, unspecified (principal); R03.0 Elevated blood-pressure reading, without diagnosis of hypertension; E66.01 Morbid (severe) obesity due to excess calories; Z68.42 Body mass index [BMI] 45.0-49.9, adult; R73.01 Impaired fasting glucose; E55.9 Vitamin D deficiency, unspecified; G47.33 Obstructive sleep apnea (adult) (pediatric); J45.20 Mild intermittent asthma, uncomplicated; R79.89 Other specified abnormal findings of blood chemistry; G62.9 Polyneuropathy, unspecified; H53.8 Other visual disturbances; M54.50 Low back pain, unspecified
CPT/HCPCS: 99214

== ENCOUNTER 2024-02-10 13:39 | Outpatient (AMB) | payer OTHER, SELFPAY ==
--- NOTE | 2024-02-10 13:40 | A.OFFPC_ITS ---
Vital Signs 02/10/24 13:41 Height 5 ft 10 in Weight 332 lb 8 oz BMI 47.7 BP 124/80 Blood Pressure Location Lt brachial Position Sitting Pulse 78 Pulse Source Pulse Oximeter Pulse Oximetry (%) 98 Oxygen Delivery Method Room Air Intake Visit Reasons: Annual pe Cytotechnologist Required: No Accompanied by: Self / Same As Patient Allergies No Known Allergies [No Known Allergies*] Allergy (Verified 02/10/24 14:33) Medication List - Last Reconciled 02/10/24 by Raad Schrader MD cholecalciferol (vitamin D3) 50 mcg PO DAILY 90 days Tobacco use date assessed: 02/10/24 Dental Screening Dental Screen Date: 02/10/24 Did you have a dental visit in the last 12 months?: No Did you have a dental problem in the last 6 months where you did not have access to dental care?: No Was dental information given to patient?: No HPI Annual pe HPI Details Patient comes in today for his annual physical examination States that he feels okay but relates experiencing urinary frequency for a while now He denies any dysuria Adds that he has not been using his CPAP device consistently for a while now as he has claustrophobia and he often finds it very suffocating to have the device on his face when he is sleeping at night He also has not seen Sleep Medicine for follow up in over a year now He denies any headaches or dizziness Denies any chest pains, no SOB No nausea/vomiting, no abdominal pain No change in bowel habits noted He was not able to get his previously ordered labs done before his visit today - his original appointment for his PE was in November 2023 but this was rescheduled to today [facility] Medical History Needlestick injury due to hypodermic needle Elevated LFTs Vitamin D deficiency Pure hypercholesterolemia Asthma Morbid obesity with BMI of 45.0-49.9, adult Elevated blood pressure reading Obstructive sleep apnea Surgical History No history of previous surgery Family History Mother High blood pressure Active asthma Diabetes Father High blood pressure Active asthma Social History Housing: House Alcohol intake: current Alcohol intake frequency: holidays/special occasions only e-Cigarette/Vaping Use: Currently Using Second Hand Smoke Exposure: Yes service: No Current occupational status: employed Cognitive needs: No Hearing needs: No Vision needs: Yes Questionnaire PHQ-9 Over the last 2 weeks, how often have you been bothered by any of the following problems? 1. Little interest or pleasure in doing things: not at all 2. Feeling down, depressed, or hopeless: not at all 3. Trouble falling or staying asleep, or sleeping too much: nearly every day 4. Feeling tired or having little energy: several days 5. Poor appetite or overeating: not at all 6. Feeling bad about yourself - or that you are a failure or have let yourself or your family down: not at all 7. Trouble concentrating on things, such as reading the newspaper or watching television: not at all 8. Moving or speaking so slowly that other people could have noticed. Or the opposite - being so fidgety or restless that you have been moving around a lot more than usual: not at all 9. Thoughts that you would be better off or of hurting yourself in some way: not at all Total score: 4 Depression Screening Interpretation: Positive Depression Screening Follow-up: Existing condition and Community Mental Health Worker F/U Depression Screening Done: Yes 35225 - PHQ-9 Billing: Yes Source: Developed by Drs. Bud Gilbert, Abby Lopez, Lawrence Burk and colleagues, with an educational sonja from [employer]. Thrive Questionnaire Date Thrive assessed: 02/10/24 I am a: Patient What is your living situation today?: I have a place to live, but I am worried about losing it in the future Within the past 12 months, did the food you bought not last and you didn't have the money to get more?: Sometimes True Within the past 12 months, did you worry whether your food would run out before you got money to buy more?: Often true Do you have trouble paying for medicines?: I choose not to answer this question Do you have trouble getting transportation to medical appointments?: No Do you have trouble paying your heating and electricity bill?: I choose not to answer this question Do you have trouble taking care of your child, family member or friend?: I choose not to answer this question Do you have trouble with day-to-day activities such as bathing, preparing meals, shopping, managing finances, etc.?: No Are you currently unemployed and looking for a job?: I choose not to answer this question Are you interested in more education?: I choose not to answer this question Please select the resources that you would like help with: Housing/Senior Care Currently or been in a relationship where the following occur: No concerns reported THRIVE Score: 3 AUDIT C Alcohol Use Questionnaire (AUDIT-C) 1. How often do you have a drink containing alcohol?: Monthly or less 2. How many drinks containing alcohol do you have on a typical day when you are drinking?: 7 to 9 3. How often do you have six or more drinks on one occasion?: Monthly Total Score: 6 Score Reviewed/Action Taken: Yes JOAO-7 AMB Questionnaire JOAO-7 Date JOAO - 7 assessed: 02/10/24 Feeling nervous, anxious, or on edge: 0 = Not at all Not being able to stop or control worryin = Not at all Worrying too much about different things: 0 = Not at all Trouble relaxin = Not at all Being so restless that it is hard to sit still: 0 = Not at all Becoming easily annoyed or irritable: 0 = Not at all Feeling afraid as if something awful might happen: 0 = Not at all Total JOAO-7 score (0-4 normal; 5-9 mild; 10-14 moderate; 15-21 severe): 0 Source: Developed by Drs. Bud Gilbert, Abby Lopez, Lawrence Burk and colleagues, with an educational sonja from [employer]. Review of Systems Const Denies chills, Reports daytime sleepiness, Denies difficulty sleeping (but he is not able to use his CPAP device consistently d/t claustrophobia), Reports fatigue, Denies fever(s), Denies headache(s), Denies malaise and Denies weakness Eyes Denies blurry vision, Denies change in vision, Denies irritation and Denies itchy eyes ENT Denies dysphagia, Denies dizziness, Denies otalgia, Denies headache(s), Denies nasal congestion, Denies neck pain, Denies odynophagia and Denies sore throat Card Denies chest pain, Denies rapid heart rate, Denies irregular heart rhythm, Denies palpitations and Denies dyspnea Resp Denies chest congestion, Denies cough, Denies dyspnea and Denies wheezing GI Denies abdominal pain, Denies bloating, Denies constipation, Denies dysphagia, Denies heartburn, Denies diarrhea, Denies nausea, Denies odynophagia and Denies vomiting Denies hematuria, Denies difficulty urinating, Denies dysuria, Reports nocturia, Reports urinary frequency and Denies urinary urgency Musc Denies back pain, Denies arthralgias, Denies joint swelling, Denies muscle weakness and Denies neck pain Skin/Breast Denies change in pigmentation, Denies lesions, Denies rash and Denies unusual bruising Neuro Denies dizziness, Denies headache(s), Denies paresthesias and Denies weakness Endo Reports fatigue and Denies palpitations Aller/Immun Denies itchy eyes and Denies wheezing Physical exam (Primary Care) Vital Signs: Last Vital Signs Pulse 78 02/10/24 13:41 BP 124/80 02/10/24 13:41 Pulse Ox 98 02/10/24 13:41 Oxygen Delivery Method Room Air 02/10/24 13:41 BMI result Body Mass Index 47.7 Tobacco/Smoking Status: Tobacco use Status Tobacco use date assessed 02/10/24 02/10/24 13:48 e-Cigarette/Vaping Use Currently Using 02/10/24 13:48 PHQ-9: PHQ-9 Score PHQ-9: Total score 4 02/10/24 13:48 Depression Screening Interpretation: Positive Depression Screening Follow-up: Existing condition and Community Mental Health Worker F/U Thrive Assessment: Date of Thrive Assessment Date Thrive assessed 02/10/24 02/10/24 13:48 Currently or been in a relationship where the following occur: No concerns reported Const General: no acute distress, alert and awake Orientation/consciousness: patient oriented x3 HENMT Head: Yes normocephalic and Yes atraumatic Ears: external ears normal, TM's normal bilaterally and EAC's normal General nose exam: No nasal discharge present Face and sinus: Yes normal facial exam and Yes sinuses nontender Teeth and gingiva: dentition normal Throat: Yes posterior oropharynx normal and Yes tonsils normal (no TP congestion) Eyes Eyelids: Yes eyelids normal Conjunctivae: conjunctivae normal Pupils: Equal, round and reactive pupils present EOM: EOMs intact bilaterally Neck Neck: Yes no lymphadenopathy and Yes supple Thyroid: Thyroid normal Resp Auscultation: clear to auscultation bilaterally, no rales and no wheezes Cardio Rate: regular rate Rhythm: regular rhythm Heart sounds: no murmurs GI Palpation (GI): Soft to palpation, nontender and No hepatosplenomegaly present Auscultation: normal bowel sounds General: Yes no CVA tenderness Back/Spine/Pelvis Back: no CVA tenderness Thoracic/Lumbar Spine: thoracic and lumbar spine normal to inspection Skin Lesions: no lesions Rashes: no rashes Neuro General: patient oriented x3, moves all extremities, no focal motor deficits and CN's II-XI intact bilaterally Cranial nerves: Yes Equal, round and reactive pupils present Cognition (Neuro): normal cognition Gait exam (Neuro): Normal gait present Extrem General: Yes no clubbing, cyanosis or edema Assessment and Plan Assessment & Plan (1) Annual physical exam: Code(s): Z00.00 - Encounter for general adult medical examination without abnormal findings Plan: Will have patient go and get his previously ordered labs (updated) done MERARI (2) Pure hypercholesterolemia: Code(s): E78.00 - Pure hypercholesterolemia, unspecified Plan: Reinforced low cholesterol diet Will recheck his fasting lipids MERARI for follow up (3) Elevated blood pressure reading: Code(s): R03.0 - Elevated blood-pressure reading, without diagnosis of hypertension Plan: Reinforced low sodium diet His blood pressure seems to have improved a lot with his weight loss last year Patient is reminded to continue monitoring his blood pressure regularly (4) Impaired fasting glucose: Code(s): R73.01 - Impaired fasting glucose Plan: He is reminded that his fasting blood sugars were elevated when they were checked last year (2022), and with his recent urinary frequency, may indicate progression of this, raising concerns about the possibility of diabetes Reinforced low calorie/low carb diet Will recheck his FBS and alsi check his HgbA1c MERARI for further evaluation (5) Urinary frequency: Code(s): R35.0 - Frequency of micturition Plan: He is advised that his recent urinary frequency may be related to his hyperglycemia Will send him for U/A and other labs (FBS, HgbA1c) MERARI for further evaluation (6) Vitamin D deficiency: Code(s): E55.9 - Vitamin D deficiency, unspecified Plan: Continue Vitamin D3 2000 units QD Will recheck his Vitamin D level for follow up (7) Obstructive sleep apnea: Comment: (+) severe JULITA - diagnosed in September 2021 Code(s): G47.33 - Obstructive sleep apnea (adult) (pediatric) Plan: He has a CPAP device to use at night when sleeping - setting is supposed to be at 13 to 16 cm pressure States that he was sleeping a lot better and felt more refreshed/less tired during the daytime when he started using his CPAP device last year but has not been as consistent with it for the past few months and has not been able to to lerate using it effectively due to his claustrophobia He has not seen Sleep Medicine in over a year now and is advised to contact them to schedule a follow up appt MERARI - discussed that they may be able to help him find some work-around solution to his claustrophobia and help him get back to using his CPAP device more consistently (8) Asthma: Code(s): J45.909 - Unspecified asthma, uncomplicated Qualifiers: Asthma severity: mild Asthma persistence: intermittent Asthma complication type: uncomplicated Qualified Code(s): J45.20 - Mild intermittent asthma, uncomplicated Plan: PFT done on 09/02/2021 revealed (+) very mild degree of small airway obstructive disorder, with a borderline negative response to metacholine challenge, indicating the presence of reactive airways/bronchial asthma Continue Albuterol HFA 2 inhalations every 6 hours as needed (9) Elevated LFTs: Code(s): R79.89 - Other specified abnormal findings of blood chemistry Plan: Involving primarily his ALT; his AST was normal on his recent labs This was most likely related to his weight (hepatosteatosis) and advised that this should improve with weight loss He is again cautioned to avoid drinking too much alcohol or taking too much Acetaminophen-containing medications as these can aggravate his LFTs Will recheck his LFTs MERARI for follow up (10) Neuropathy: Code(s): G62.9 - Polyneuropathy, unspecified Plan: EMG and NCV done on 09/25/2022 revealed (+) left lateral femoral cutaneous neuropathy and moderate left peroneal sensory neuropathy Advised that meralgia paresthetica can also be part of the reason for his symptoms - emphasized non-pharmacologic measures like losing weight and avoidance of tight-fitting clothes to avoid aggravating his symptoms; losing weight can actually help alleviate symptoms As his Vitamin B12 level was borderline low when it was checked a few months ago, patient was advised then to start taking OTC Vitamin B12 1000 mcg QD Will recheck his B12 level for follow up (11) Morbid obesity with BMI of 45.0-49.9, adult: Code(s): E66.01 - Morbid (severe) obesity due to excess calories; Z68.42 - Body mass index [BMI] 45.0-49.9, adult Plan: Reinforced diet/exercise as tolerated/lose weight Plan Follow up in 6 months Coding Level of Care Code Est Pt Prev Care [id number]([id number]) Diagnoses Annual physical exam Z00.00 Pure hypercholesterolemia E78.00 Elevated blood pressure reading R03.0 Impaired fasting glucose R73.01 Urinary frequency R35.0 Vitamin D deficiency E55.9 Obstructive sleep apnea G47.33 Mild intermittent asthma without complication J45.20 Asthma severity: mild Asthma persistence: intermittent Asthma complication type: uncomplicated Elevated LFTs R79.89 Neuropathy G62.9 Morbid obesity with BMI of 45.0-49.9, adult E66.01; Z68.42
[2024-02-10 13:41] VITALS: BP 124/80; PULSE 78; O2SAT 98; BMI 47.7
== END 2024-02-10 14:44 | disposition home or self-care (01) ==
PROVIDERS: PCP Internal Medicine; Visit Provider Internal Medicine
DX: Z00.00 Encounter for general adult medical examination without abnormal findings (principal); E66.01 Morbid (severe) obesity due to excess calories; Z68.42 Body mass index [BMI] 45.0-49.9, adult; E78.00 Pure hypercholesterolemia, unspecified; R03.0 Elevated blood-pressure reading, without diagnosis of hypertension; R73.01 Impaired fasting glucose; R35.0 Frequency of micturition; E55.9 Vitamin D deficiency, unspecified; G47.33 Obstructive sleep apnea (adult) (pediatric); J45.20 Mild intermittent asthma, uncomplicated; R79.89 Other specified abnormal findings of blood chemistry; G62.9 Polyneuropathy, unspecified
CPT/HCPCS: 99395

== ENCOUNTER 2024-12-15 08:29 | Outpatient (REF) | payer OTHER, SELFPAY ==
[2024-12-15 08:44] LABS: MANUAL DIFF FLAG NO
[2024-12-15 08:57] LABS: Hematocrit 47.0 % (42.0-52.0); Hemoglobin 14.9 g/dl (14.0-18.0); Imm Gran Abs Auto 0.06 X10*3/uL (0.00-0.03); Imm Gran Pct Auto 0.5 % (0.0-0.4); Lymphocytes Absolute Auto 2.8 X10*3/uL (1.2-4.9); Mean Corpuscular HGB Conc 31.7 g/dl (31.0-36.0); Mean Corpuscular Hemoglobin 26.9 pg (27.0-33.0); Mean Corpuscular Volume 85.0 fL (80.0-98.0); NRBC Abs Auto 0.000 X10*3/uL (0.0-0.012); NRBC Pct Auto 0.0 /100WBC (0.0-0.2); Platelet Count 320 X10*3/uL (160-400); Red Blood Count 5.53 X10*6/uL (4.60-5.80); White Blood Count 12.4 X10*3/uL (4.8-10.8)
[2024-12-15 09:07] LABS: Hemoglobin A1C 231.2396 umol/L; Total Hemoglobin (HGBA1C) 3902.8570 umol/L
[2024-12-15 09:13] LABS: Appearance Urine Clear; Glucose Urine UA 500 mg/dL (Negative); PH 6.5 (5.0-9.0); Specific Gravity - Urine 1.025 (1.005-1.025)
[2024-12-15 09:43] LABS: Alanine Aminotransferase 47 U/L (0-40); Albumin Level 4.1 g/dL (3.5-5.0); Alkaline Phosphatase 120 U/L (39-117); Anion Gap 10 (12-20); Aspartate Amino Transferase 31 U/L (5-37); Blood Urea Nitrogen 14 mg/dL (9-16); Calcium 9.1 mg/dL (8.4-10.2); Carbon Dioxide 28 mmol/L (22-29); Chloride 102 mmol/L (96-108); Cholesterol 190 mg/dL (<200); Estimated Glomerular Filt Rate > 60; HDL Cholesterol 31 mg/dL (>40); Potassium 4.3 mmol/L (3.3-5.1); Sodium 136 mmol/L (135-145); Total Protein 7.7 g/dL (6.5-8.0); Triglycerides 126 mg/dL (<150)
[2024-12-15 09:56] LABS: Folate 3.4 ng/mL (> or = 4.0); Vitamin B12 366 pg/mL (200-900)
== END 2024-12-15 08:30 | disposition home or self-care (01) ==
LOC: HO.LAB 08:29
PROVIDERS: Visit Provider Internal Medicine
DX: E78.00 Pure hypercholesterolemia, unspecified (principal); R30.0 Dysuria; R73.01 Impaired fasting glucose; E55.9 Vitamin D deficiency, unspecified; G62.9 Polyneuropathy, unspecified; E53.8 Deficiency of other specified B group vitamins; Z00.00 Encounter for general adult medical examination without abnormal findings
CPT/HCPCS: 36415; 80053; 80061; 81003; 82306; 82607; 82746; 83036; 84443; 85025

== ENCOUNTER 2024-12-21 16:34 | Outpatient (AMB) | payer OTHER, SELFPAY ==
[2024-12-21 16:36] VITALS: BP 126/84; PULSE 82; O2SAT 96; BMI 47.6
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
== END 2024-12-21 16:58 | disposition home or self-care (01) ==
LOC: HO.HMCH 16:35
PROVIDERS: PCP Internal Medicine; Visit Provider Internal Medicine
DX: E11.42 Type 2 diabetes mellitus with diabetic polyneuropathy (principal); E66.01 Morbid (severe) obesity due to excess calories; Z68.42 Body mass index [BMI] 45.0-49.9, adult; E78.00 Pure hypercholesterolemia, unspecified; R03.0 Elevated blood-pressure reading, without diagnosis of hypertension; E55.9 Vitamin D deficiency, unspecified; G47.33 Obstructive sleep apnea (adult) (pediatric); J45.20 Mild intermittent asthma, uncomplicated; R79.89 Other specified abnormal findings of blood chemistry; G62.9 Polyneuropathy, unspecified; M54.50 Low back pain, unspecified

== ENCOUNTER → 2024-12-21 16:34 | Outpatient (BNVA) | payer OTHER, SELFPAY | PROVIDERS: PCP Internal Medicine; Visit Provider Internal Medicine | DX: E11.42 Type 2 diabetes mellitus with diabetic polyneuropathy (principal); E78.00 Pure hypercholesterolemia, unspecified; E55.9 Vitamin D deficiency, unspecified; G47.33 Obstructive sleep apnea (adult) (pediatric); R03.0 Elevated blood-pressure reading, without diagnosis of hypertension; J45.20 Mild intermittent asthma, uncomplicated; R79.89 Other specified abnormal findings of blood chemistry; M54.50 Low back pain, unspecified; E66.01 Morbid (severe) obesity due to excess calories; Z68.42 Body mass index [BMI] 45.0-49.9, adult | CPT/HCPCS: 96127; 99212 ==

== ENCOUNTER 2024-12-26 08:57 | Outpatient (AMB) | payer OTHER, SELFPAY ==
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
[2024-12-26 09:04] VITALS: BP 122/80; PULSE 80; O2SAT 96; BMI 48.3
== END 2024-12-26 10:11 | disposition home or self-care (01) ==
LOC: HO.HSMS 08:58
PROVIDERS: PCP Internal Medicine; Visit Provider Physician Assistant Medical
DX: G47.33 Obstructive sleep apnea (adult) (pediatric) (principal); M54.50 Low back pain, unspecified; R06.89 Other abnormalities of breathing
CPT/HCPCS: 99204; G2211

== ENCOUNTER → 2024-12-26 08:57 | Outpatient (BNVA) | payer OTHER, SELFPAY | PROVIDERS: PCP Internal Medicine; Visit Provider Physician Assistant Medical | DX: G47.33 Obstructive sleep apnea (adult) (pediatric) (principal); R06.89 Other abnormalities of breathing; M54.32 Sciatica, left side | CPT/HCPCS: 99202 ==

== ENCOUNTER 2025-03-29 09:46 | Outpatient (AMB) | payer OTHER, SELFPAY ==
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
[2025-03-29 10:03] VITALS: BP 140/70; PULSE 75; TEMP 36.2; O2SAT 94; BMI 48.0
== END 2025-03-29 10:51 | disposition home or self-care (01) ==
LOC: HO.HMCH 09:46
PROVIDERS: PCP Internal Medicine; Visit Provider Internal Medicine
DX: E11.42 Type 2 diabetes mellitus with diabetic polyneuropathy (principal); E66.01 Morbid (severe) obesity due to excess calories; Z68.42 Body mass index [BMI] 45.0-49.9, adult; E78.00 Pure hypercholesterolemia, unspecified; R03.0 Elevated blood-pressure reading, without diagnosis of hypertension; E55.9 Vitamin D deficiency, unspecified; G47.33 Obstructive sleep apnea (adult) (pediatric); J45.20 Mild intermittent asthma, uncomplicated; R79.89 Other specified abnormal findings of blood chemistry; G62.9 Polyneuropathy, unspecified; M54.50 Low back pain, unspecified; R73.01 Impaired fasting glucose

== ENCOUNTER 2025-03-29 09:46 | Outpatient (REF) | payer OTHER, SELFPAY ==
--- NOTE | ~2025-03-29 | XR_ITS ---
EXAMINATION: XR LUMBOSACRAL SPINE CLINICAL INFORMATION: M54.50 - Low back pain, unspecified COMPARISON: None available. TECHNIQUE: Three views of the lumbosacral spine. FINDINGS: There are 5 nonrib-bearing lumbar segments. There is mild convex left curvature of the lumbar spine. There is mild rotational component. T12-L1: There is mild disc space narrowing. L1-2: There is minimal disc space narrowing. L2-3: There is subtle retrolisthesis and minimal disc space narrowing. L3-4: There is subtle retrolisthesis and mild facet sclerosis. L4-5: There is facet sclerosis and osteophytes. L5-S1: There is mild disc space narrowing. XR/XR lumbar spine 2-3V IMPRESSION: Mild multilevel degenerative changes. Electronically signed by: Davis Marie MD 03/29/2025 11:24 AM EDT
[2025-03-29 12:44] LABS: Alanine Aminotransferase 41 U/L (0-40); Albumin Level 4.3 g/dL (3.5-5.0); Alkaline Phosphatase 126 U/L (39-117); Anion Gap 10 (12-20); Aspartate Amino Transferase 30 U/L (5-37); Blood Urea Nitrogen 16 mg/dL (9-16); Calcium 9.2 mg/dL (8.4-10.2); Carbon Dioxide 29 mmol/L (22-29); Chloride 104 mmol/L (96-108); Cholesterol 200 mg/dL (<200); Estimated Glomerular Filt Rate > 60; HDL Cholesterol 34 mg/dL (>40); Potassium 4.1 mmol/L (3.3-5.1); Sodium 139 mmol/L (135-145); Total Protein 7.7 g/dL (6.5-8.0); Triglycerides 141 mg/dL (<150)
== END 2025-03-29 09:47 | disposition home or self-care (01) ==
LOC: HO.LAB 09:46
PROVIDERS: PCP Internal Medicine; Visit Provider Internal Medicine
DX: E11.9 Type 2 diabetes mellitus without complications (principal); E78.00 Pure hypercholesterolemia, unspecified; M54.50 Low back pain, unspecified; R03.0 Elevated blood-pressure reading, without diagnosis of hypertension; E55.9 Vitamin D deficiency, unspecified; G47.33 Obstructive sleep apnea (adult) (pediatric); J45.20 Mild intermittent asthma, uncomplicated; R79.89 Other specified abnormal findings of blood chemistry; G62.9 Polyneuropathy, unspecified; E66.01 Morbid (severe) obesity due to excess calories; Z68.42 Body mass index [BMI] 45.0-49.9, adult
CPT/HCPCS: 36415; 72100; 80053; 80061; 83036; 99212

== ENCOUNTER → 2025-03-29 11:15 | Outpatient (BNV) | payer OTHER, SELFPAY | PROVIDERS: PCP Internal Medicine; Visit Provider Radiology Diagnostic Radiology | DX: M51.360 Other intervertebral disc degeneration, lumbar region with discogenic back pain only (principal) | CPT/HCPCS: 72100 ==

== ENCOUNTER 2025-05-08 13:25 | Outpatient (AMB) | payer OTHER, SELFPAY ==
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
[2025-05-08 13:30] VITALS: BP 146/86; PULSE 87; RESP 16; O2SAT 95; BMI 47.3
== END 2025-05-08 13:59 | disposition home or self-care (01) ==
LOC: HO.PMC 13:26
PROVIDERS: PCP Internal Medicine; Visit Provider Nurse Practitioner Family
DX: M54.50 Low back pain, unspecified (principal); M51.369 Other intervertebral disc degeneration, lumbar region without mention of lumbar back pain or lower extremity pain; G57.12 Meralgia paresthetica, left lower limb; M54.16 Radiculopathy, lumbar region; E66.01 Morbid (severe) obesity due to excess calories; Z68.42 Body mass index [BMI] 45.0-49.9, adult
CPT/HCPCS: 99204

== ENCOUNTER → 2025-05-08 13:25 | Outpatient (BNVA) | payer OTHER, SELFPAY | PROVIDERS: PCP Internal Medicine; Visit Provider Nurse Practitioner Family | DX: E66.01 Morbid (severe) obesity due to excess calories (principal); Z68.42 Body mass index [BMI] 45.0-49.9, adult; M54.50 Low back pain, unspecified; M54.16 Radiculopathy, lumbar region | CPT/HCPCS: 99202 ==

== ENCOUNTER 2025-05-23 11:13 | Outpatient (AMB) | payer OTHER, SELFPAY ==
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
[2025-05-23 12:26] VITALS: BMI 46.7
== END 2025-05-23 12:51 | disposition home or self-care (01) ==
LOC: HO.HBS 11:13
PROVIDERS: PCP Internal Medicine; Visit Provider Surgery
DX: E66.01 Morbid (severe) obesity due to excess calories (principal); Z68.42 Body mass index [BMI] 45.0-49.9, adult
CPT/HCPCS: 99203

== ENCOUNTER 2025-05-30 09:04 | Outpatient (REF) | payer OTHER, SELFPAY ==
--- NOTE | ~2025-05-30 | XR_ITS ---
EXAMINATION: XR CHEST 2 VIEWS HISTORY: E66.01 - Morbid (severe) obesity due to excess calories COMPARISON: Comparison is made with the prior examination dated 09/15/2020. FINDINGS: PA and lateral views of the chest are submitted. The lungs are expanded and clear. There is no pleural effusion, pneumothorax, or pulmonary vascular congestion. The heart is normal in size. The bones are intact. XR/XR chest 2V IMPRESSION: No acute cardiopulmonary abnormality. Electronically signed by: Bud Tompkins MD 05/30/2025 10:06 AM [place]
--- NOTE | 2025-05-30 09:11 | ECG_ITS ---
Test Reason : e66.01 Blood Pressure : */* mmHG Vent. Rate : 66 BPM Atrial Rate : 66 BPM P-R Int : 166 ms QRS Dur : 86 ms QT Int : 384 ms P-R-T Axes : 44 9 43 degrees QTcB Int : 402 ms Normal sinus rhythm Nonspecific T wave abnormality Abnormal ECG No previous ECGs available Referred By: Daron Tidwell Electronically Signed By: KANIKA SYED MD
[2025-05-30 09:30] LABS: MANUAL DIFF FLAG NO
[2025-05-30 09:50] LABS: Hematocrit 45.6 % (42.0-52.0); Hemoglobin 14.7 g/dl (14.0-18.0); Imm Gran Abs Auto 0.03 X10*3/uL (0.00-0.03); Imm Gran Pct Auto 0.3 % (0.0-0.4); Lymphocytes Absolute Auto 2.6 X10*3/uL (1.2-4.9); Mean Corpuscular HGB Conc 32.2 g/dl (31.0-36.0); Mean Corpuscular Hemoglobin 27.2 pg (27.0-33.0); Mean Corpuscular Volume 84.4 fL (80.0-98.0); NRBC Abs Auto 0.000 X10*3/uL (0.0-0.012); NRBC Pct Auto 0.0 /100WBC (0.0-0.2); Platelet Count 305 X10*3/uL (160-400); Red Blood Count 5.40 X10*6/uL (4.60-5.80); White Blood Count 9.8 X10*3/uL (4.8-10.8)
[2025-05-30 10:31] LABS: Alanine Aminotransferase 38 U/L (0-40); Albumin Level 4.4 g/dL (3.5-5.0); Alkaline Phosphatase 116 U/L (39-117); Anion Gap 11 (12-20); Aspartate Amino Transferase 25 U/L (5-37); Blood Urea Nitrogen 13 mg/dL (9-16); Calcium 9.3 mg/dL (8.4-10.2); Carbon Dioxide 27 mmol/L (22-29); Chloride 106 mmol/L (96-108); Cholesterol 187 mg/dL (<200); Estimated Glomerular Filt Rate > 60; HDL Cholesterol 30 mg/dL (>40); Iron 46 mcg/dL (45-160); Percent Iron Saturation 17 % (15-50); Potassium 4.1 mmol/L (3.3-5.1); Sodium 140 mmol/L (135-145); Total Iron Binding Capacity 265 mcg/dL (228-428); Total Protein 7.7 g/dL (6.5-8.0); Triglycerides 102 mg/dL (<150); Unsaturated Iron Binding 219 ug/dL
[2025-05-30 10:42] LABS: Ferritin 131 ng/mL (20-250)
[2025-05-30 10:53] LABS: Folate 3.5 ng/mL (> or = 4.0); Vitamin B12 296 pg/mL (200-900)
== END 2025-05-30 09:05 | disposition home or self-care (01) ==
LOC: HO.XRAY 09:04
PROVIDERS: PCP Internal Medicine; Visit Provider Surgery
DX: E11.9 Type 2 diabetes mellitus without complications (principal); E66.01 Morbid (severe) obesity due to excess calories; Z68.42 Body mass index [BMI] 45.0-49.9, adult; E78.00 Pure hypercholesterolemia, unspecified; D64.9 Anemia, unspecified
CPT/HCPCS: 36415; 71046; 80053; 80061; 82306; 82607; 82728; 82746; 83036; 83525; 83540; 84425; 84443; 84590; 84630; 85025; 86140; 93005

== ENCOUNTER → 2025-05-30 09:11 | Outpatient (BNV) | payer OTHER, SELFPAY | PROVIDERS: PCP Internal Medicine; Visit Provider Internal Medicine Cardiovascular Disease | DX: R94.31 Abnormal electrocardiogram [ECG] [EKG] (principal); E66.01 Morbid (severe) obesity due to excess calories; Z68.42 Body mass index [BMI] 45.0-49.9, adult | CPT/HCPCS: 93010 ==

== ENCOUNTER → 2025-05-30 09:29 | Outpatient (BNV) | payer OTHER, SELFPAY | PROVIDERS: PCP Internal Medicine; Visit Provider Radiology Diagnostic Radiology | DX: E66.01 Morbid (severe) obesity due to excess calories (principal); Z68.42 Body mass index [BMI] 45.0-49.9, adult | CPT/HCPCS: 71046 ==